=== PATIENT | female | born 1960 | race Hispanic/Latino ===

== ENCOUNTER 2018-01-02 20:55 | Emergency (ER) | payer MEDICARE ==
[2018-01-02 22:15] LABS: Bacteria,Urine 1+ /HPF (Negative); Bilirubin,Urine NEG (Negative); Blood,Urine NEG (Negative); Color,Urine Yellow (Yellow); Protein,Urine <15 mg/dL mg/dL (Negative); RBC,Urine < 1.0 /HPF (0.0-6.0); Urobilinogen,Urine < 2.0 mg/dL (<2.0); WBC,Urine < 1.0 /HPF (0.0-6.0)
[2018-01-02 22:16] LABS: Basophils # (Auto) 0.1 K/mm3 (0.0-0.1); Basophils % (Auto) 0.8 % (0.0-1.8); Eosinophils # (Auto) 0.1 K/mm3 (0.0-0.4); Eosinophils % (Auto) 0.7 % (0.0-4.3); Hematocrit 44.4 % (30.3-42.9); Hemoglobin 14.9 gm/dl (10.1-14.3); Lymphocytes # (Auto) 3.3 K/mm3 (1.2-5.4); Lymphocytes % (Auto) 30.6 % (13.4-35.0); Mean Corpuscular HGB Conc 34 % (30-34); Mean Corpuscular Hemoglobin 30 pg (28-32); Mean Corpuscular Volume 90 fl (79-97); Monocytes # (Auto) 0.4 K/mm3 (0.0-0.8); Monocytes % (Auto) 3.3 % (0.0-7.3); Platelet Count 294 K/mm3 (140-440); Red Blood Count 4.93 M/mm3 (3.65-5.03); Red Cell Distribution Width 15.8 % (13.2-15.2)
[2018-01-02 22:32] LABS: Amphetamine Screen,Urine PRESUMPTIVE NEGATIVE; Benzodiazepines Screen,Urine PRESUMPTIVE NEGATIVE; Cannabinoid Screen,Urine PRESUMPTIVE NEGATIVE; Cocaine Screen,Urine PRESUMPTIVE NEGATIVE; Methadone Screen,Urine PRESUMPTIVE NEGATIVE; Opiate Screen,Urine PRESUMPTIVE NEGATIVE
[2018-01-02 22:35] LABS: BUN/Creatinine Ratio 8; Blood Urea Nitrogen 4 mg/dL (7-17); Calcium 8.3 mg/dL (8.4-10.2); Hemolysis Index 6
[2018-01-03] MEDS ORDERED: NACL 0.9% 1000 ML 1,000 ML ONE (03:41)
[2018-01-03] MEDS ORDERED: NACL 0.9% 1000 ML 2,000 ML IV ONE (03:42)
--- NOTE | 2018-01-03 05:01 | Emergency Department Report ---
ED Psych HPI - General Chief Complaint: Medical Clearance Stated Complaint: DETOX Time Seen by Provider: 01/03/18 02:09 Source: patient Mode of arrival: Ambulatory - History of Present Illness Initial Comments: Ms. Mascorro is a 57-year-old female with history of alcoholism and substance abuse. Prior to arrival she drinks alcohol just 2 hours before she came to the ED. She took several tablets of Suboxone. She stated that she wanted treatment for her substance dependence. She says she is depressed. She denies plan to harm herself. She has had suicidal thoughts. MD Complaint: suicidal ideation, feels depressed -: days(s) (several) Associated Psychiatric Symptoms: depression, suicidal ideation Improves With: none Worsens With: none Context: recent alcohol abuse, recent drug abuse Associated Symptoms: denies other symptoms - Related Data Allergies Allergy/AdvReac Type Severity Reaction Status Date / Time No Known Allergies Allergy Unverified 01/02/18 21:37 ED Review of Systems ROS: Stated complaint: DETOX Other details as noted in HPI Comment: All other systems reviewed and negative Constitutional: denies: fever, malaise Respiratory: denies: cough Cardiovascular: denies: chest pain ED Past Medical Hx - Past Medical History Previous Medical History?: Yes Hx Psychiatric Treatment: Yes (Bipolar) Additional medical history: fibromyalgia. thyroid - Surgical History Past Surgical History?: Yes Additional Surgical History: benign lump removed from breast - Social History Smoking Status: Current Every Day Smoker Substance Use Type: Alcohol, Other ED Physical Exam - General Limitations: No Limitations General appearance: alert, in no apparent distress, appears intoxicated, other ( slurred speech but protecting airway will give history) - Head Head exam: Present: atraumatic, normocephalic - Eye Eye exam: Present: normal appearance - ENT ENT exam: Present: mucous membranes moist - Neck Neck exam: Present: normal inspection. Absent: tenderness, meningismus - Respiratory Respiratory exam: Present: normal lung sounds bilaterally. Absent: respiratory distress, wheezes, rales, rhonchi - Cardiovascular Cardiovascular Exam: Present: regular rate, normal rhythm, normal heart sounds. Absent: systolic murmur, diastolic murmur, rubs, gallop - GI/Abdominal GI/Abdominal exam: Present: soft, normal bowel sounds. Absent: distended, tenderness, guarding, rebound - Extremities Exam Extremities exam: Present: normal inspection - Back Exam Back exam: Present: normal inspection - Neurological Exam Neurological exam: Present: alert, oriented X3 - Psychiatric Psychiatric exam: Present: depressed, flat affect - Skin Skin exam: Present: warm, dry, intact, normal color. Absent: rash ED Course Vital Signs 01/02/18 01/02/18 01/03/18 21:06 21:31 01:41 Temperature 97.4 F L 97.4 F L Pulse Rate 70 73 Respiratory 18 18 Rate Blood Pressure 109/69 109/69 92/56 Blood Pressure [Left] O2 Sat by Pulse 92 95 Oximetry 01/03/18 01/03/18 01/03/18 01:45 02:00 02:05 Temperature 97.5 F L Pulse Rate 56 L 54 L 60 Respiratory 20 18 14 Rate Blood Pressure 93/59 96/61 Blood Pressure 96/56 [Left] O2 Sat by Pulse 97 97 97 Oximetry 01/03/18 01/03/18 01/03/18 02:15 02:30 02:45 Temperature Pulse Rate 56 L 57 L 54 L Respiratory 18 17 17 Rate Blood Pressure 96/61 93/52 93/52 Blood Pressure [Left] O2 Sat by Pulse 97 97 96 Oximetry 01/03/18 01/03/18 01/03/18 03:00 03:15 03:31 Temperature Pulse Rate 56 L 55 L 56 L Respiratory 17 16 16 Rate Blood Pressure 76/47 101/56 62/24 Blood Pressure [Left] O2 Sat by Pulse 95 97 80 L Oximetry 01/03/18 01/03/18 01/03/18 03:45 04:01 04:15 Temperature Pulse Rate 70 63 58 L Respiratory 13 10 L 19 Rate Blood Pressure 91/47 108/77 98/64 Blood Pressure [Left] O2 Sat by Pulse 97 97 95 Oximetry 01/03/18 04:30 Temperature Pulse Rate 53 L Respiratory 15 Rate Blood Pressure 99/58 Blood Pressure [Left] O2 Sat by Pulse 94 Oximetry ED Medical Decision Making - Lab Data Result diagrams: 01/02/18 21:52 01/02/18 21:52 Laboratory Results - last 24 hr 01/02/18 01/02/18 01/02/18 21:52 21:52 21:52 WBC RBC Hgb Hct MCV MCH MCHC RDW Plt Count Lymph % (Auto) [place] % (Auto) Eos % (Auto) Baso % (Auto) Lymph # [place] # Eos # Baso # Seg Neutrophils % Seg Neutrophils # Sodium 138 Potassium 3.6 Chloride 96.4 L Carbon Dioxide 21 L Anion Gap 24 BUN 4 L Creatinine 0.5 L Estimated GFR > 60 BUN/Creatinine Ratio 8 Glucose 114 H Calcium 8.3 L Urine Color Urine Turbidity Urine pH Ur Specific Ariel Urine Protein Urine Glucose (UA) Urine Ketones Urine Blood Urine Nitrite Urine Bilirubin Urine Urobilinogen Ur Leukocyte Esterase Urine WBC (Auto) Urine RBC (Auto) U Epithel Cells (Auto) Urine Bacteria (Auto) Salicylates < 0.3 L Urine Opiates Screen Urine Methadone Screen Acetaminophen < 5.0 L Ur Barbiturates Screen Ur Phencyclidine Scrn Ur Amphetamines Screen U Benzodiazepines Scrn Urine Cocaine Screen U Marijuana (THC) Screen Drugs of Abuse Note Plasma/Serum Alcohol 01/02/18 01/02/18 01/02/18 21:52 21:52 21:55 WBC 10.8 RBC 4.93 Hgb 14.9 H Hct 44.4 H MCV 90 MCH 30 MCHC 34 RDW 15.8 H Plt Count 294 Lymph % (Auto) 30.6 [place] % (Auto) 3.3 Eos % (Auto) 0.7 Baso % (Auto) 0.8 Lymph # 3.3 [place] # 0.4 Eos # 0.1 Baso # 0.1 Seg Neutrophils % 64.6 Seg Neutrophils # 7.0 Sodium Potassium Chloride Carbon Dioxide Anion Gap BUN Creatinine Estimated GFR BUN/Creatinine Ratio Glucose Calcium Urine Color Yellow Urine Turbidity Clear Urine pH 6.0 Ur Specific Ariel 1.004 Urine Protein <15 mg/dl Urine Glucose (UA) Neg Urine Ketones Neg Urine Blood Neg Urine Nitrite Neg Urine Bilirubin Neg Urine Urobilinogen < 2.0 Ur Leukocyte Esterase Neg Urine WBC (Auto) < 1.0 Urine RBC (Auto) < 1.0 U Epithel Cells (Auto) 1.0 Urine Bacteria (Auto) 1+ Salicylates Urine Opiates Screen Urine Methadone Screen Acetaminophen Ur Barbiturates Screen Ur Phencyclidine Scrn Ur Amphetamines Screen U Benzodiazepines Scrn Urine Cocaine Screen U Marijuana (THC) Screen Drugs of Abuse Note Plasma/Serum Alcohol 0.26 H 01/02/18 21:55 WBC RBC Hgb Hct MCV MCH MCHC RDW Plt Count Lymph % (Auto) [place] % (Auto) Eos % (Auto) Baso % (Auto) Lymph # [place] # Eos # Baso # Seg Neutrophils % Seg Neutrophils # Sodium Potassium Chloride Carbon Dioxide Anion Gap BUN Creatinine Estimated GFR BUN/Creatinine Ratio Glucose Calcium Urine Color Urine Turbidity Urine pH Ur Specific Ariel Urine Protein Urine Glucose (UA) Urine Ketones Urine Blood Urine Nitrite Urine Bilirubin Urine Urobilinogen Ur Leukocyte Esterase Urine WBC (Auto) Urine RBC (Auto) U Epithel Cells (Auto) Urine Bacteria (Auto) Salicylates Urine Opiates Screen Presumptive negative Urine Methadone Screen Presumptive negative Acetaminophen Ur Barbiturates Screen Presumptive negative Ur Phencyclidine Scrn Presumptive negative Ur Amphetamines Screen Presumptive negative U Benzodiazepines Scrn Presumptive negative Urine Cocaine Screen Presumptive negative U Marijuana (THC) Screen Presumptive negative Drugs of Abuse Note Disclamer Plasma/Serum Alcohol Vital Signs - 24 hr 01/02/18 01/02/18 01/03/18 21:06 21:31 01:41 Temperature 97.4 F L 97.4 F L Pulse Rate 70 73 Respiratory 18 18 Rate Blood Pressure 109/69 109/69 92/56 Blood Pressure [Left] O2 Sat by Pulse 92 95 Oximetry 01/03/18 01/03/18 01/03/18 01:45 02:00 02:05 Temperature 97.5 F L Pulse Rate 56 L 54 L 60 Respiratory 20 18 14 Rate Blood Pressure 93/59 96/61 Blood Pressure 96/56 [Left] O2 Sat by Pulse 97 97 97 Oximetry 01/03/18 01/03/18 01/03/18 02:15 02:30 02:45 Temperature Pulse Rate 56 L 57 L 54 L Respiratory 18 17 17 Rate Blood Pressure 96/61 93/52 93/52 Blood Pressure [Left] O2 Sat by Pulse 97 97 96 Oximetry 01/03/18 01/03/18 01/03/18 03:00 03:15 03:31 Temperature Pulse Rate 56 L 55 L 56 L Respiratory 17 16 16 Rate Blood Pressure 76/47 101/56 62/24 Blood Pressure [Left] O2 Sat by Pulse 95 97 80 L Oximetry 01/03/18 01/03/18 01/03/18 03:45 04:01 04:15 Temperature Pulse Rate 70 63 58 L Respiratory 13 10 L 19 Rate Blood Pressure 91/47 108/77 98/64 Blood Pressure [Left] O2 Sat by Pulse 97 97 95 Oximetry 01/03/18 04:30 Temperature Pulse Rate 53 L Respiratory 15 Rate Blood Pressure 99/58 Blood Pressure [Left] O2 Sat by Pulse 94 Oximetry - Medical Decision Making Ms. Miller is a 57-year-old female with history of substance abuse. She is obviously intoxicated. She did have transient hypotension ED which responded to IV fluids. Will provide maintenance infusion of IV fluid. Awaiting sobriety. Will need mental health gang investigator evaluation if she has persistent suicidal thoughts once she is sober. She informed the nurse that she will need inpatient psychiatric treatment due to her suicidal thoughts. We will be able to better assess her when she is sober. Right now she is hemodynamically stable. My colleague will assess patient once she is sober. She may require mental health gang investigator. I suspect hypotension due to narcotic ingestion. No indication of sepsis no indication of ACS evidence of bleeding. Critical care attestation.: If time is entered above; I have spent that time in minutes in the direct care of this critically ill patient, excluding procedure time. ED Disposition Clinical Impression: Alcohol intoxication, Polysubstance abuse, Dehydration, mild Disposition: [id number] PSY HOSP/PSY UNIT Is pt being admited?: No Does the pt Need Aspirin: No Condition: Stable
[2018-01-03] MEDS ORDERED: NACL 0.9% 1000 ML 1,000 ML IV ONE (06:02)
[2018-01-03] MEDS ORDERED: ATIVAN IV PRN (10:57)
[2018-01-03] MEDS ORDERED: ATIVAN PO PRN ×2 (10:57)
[2018-01-03 18:07] VITALS: BP 124/76
== END 2018-01-03 18:00 ==
LOC: ED 20:55
DX: F10.129 Alcohol abuse with intoxication, unspecified (principal); E86.0 Dehydration; F31.9 Bipolar disorder, unspecified; F17.200 Nicotine dependence, unspecified, uncomplicated; M79.7 Fibromyalgia
CPT/HCPCS: 36415; 80048; 80307; 81001; 85025; 96365; 96366; 99283; G0480; J7030; 80320

== ENCOUNTER 2018-03-30 14:32 | Emergency (ER) | payer MEDICARE ==
[2018-03-30 14:46] VITALS: BP 132/83
[2018-03-30] MEDS ORDERED: MOTRIN PO ONE (15:29)
[2018-03-30] MEDS ORDERED: TESSALON PERLES PO ONE (15:29)
--- NOTE | 2018-03-30 15:39 | Emergency Department Report ---
- General Chief Complaint: Upper Respiratory Infection Stated Complaint: SHORT OF BREATH Time Seen by Provider: 03/30/18 15:17 Source: patient Mode of arrival: Ambulatory Limitations: No Limitations - History of Present Illness Initial Comments: This is a 57-year-old female nontoxic, well nourished in appearance, no acute signs of distress presents to the ED with c/o of productive cough, rhinorrhea, nasal congestion x3 days. Patient describes productive cough as yellow mucus production. Patient denies any sick contact. Patient denies any recent travels , long car, recent hospital stays. Patient denies any calf pain or calf tenderness. Patient denies any chest pain, short of breath, fever, chills, nausea, vomiting, hemoptysis, numbness, tingling, headache or stiff neck. Patient denies any allergies. Past medical history includes COPD, psychiatric and seizure. MD Complaint: cough, rhinorrhea, nasal congestion -: days(s) (3) Severity: mild Severity scale (0 -10): 0 Improves With: nothing Worsens With: nothing Associated Symptoms: denies other symptoms, rhinorrhea, nasal congestion, cough. denies: fever, chills, myalgias, diaphoresis, headache, sore throat, stiff neck, chest pain, shortness of breath, abdominal pain, nausea, vomiting, diarrhea, dysuria, rash, confusion, right sweats, weight loss, epistaxis, hoarseness, ear pain Treatments Prior to Arrival: none - Related Data Home Medications Medication Instructions Recorded Confirmed Last Taken Pregabalin [Lyrica] 1 cap PO TID 01/03/18 01/03/18 01/01/18 Previous Rx's Medication Instructions Recorded Last Taken Type Azithromycin [Zithromax Z-MENDEL] 250 mg PO DAILY #6 tablet 03/30/18 Unknown Rx Ibuprofen [Motrin] 600 mg PO Q8H PRN #30 tablet 03/30/18 Unknown Rx Allergies Allergy/AdvReac Type Severity Reaction Status Date / Time No Known Allergies Allergy Unverified 01/02/18 21:37 ED Review of Systems ROS: Stated complaint: SHORT OF BREATH Other details as noted in HPI Constitutional: denies: chills, fever Eyes: denies: eye pain, eye discharge, vision change ENT: denies: ear pain, throat pain Respiratory: cough. denies: shortness of breath, wheezing Cardiovascular: denies: chest pain, palpitations Endocrine: no symptoms reported Gastrointestinal: denies: abdominal pain, nausea, diarrhea Genitourinary: denies: urgency, dysuria, discharge Musculoskeletal: denies: back pain, joint swelling, arthralgia Skin: denies: rash, lesions Neurological: denies: headache, weakness, paresthesias Psychiatric: denies: anxiety, depression Hematological/Lymphatic: denies: easy bleeding, easy bruising ED Past Medical Hx - Past Medical History Previous Medical History?: Yes Hx Diabetes: No Hx Seizures: Yes Hx Psychiatric Treatment: Yes (Bipolar, depression) Hx COPD: Yes Additional medical history: fibromyalgia. thyroid - Surgical History Past Surgical History?: Yes Additional Surgical History: benign lump removed from breast, tubal ligation, knee surgery - Social History Smoking Status: Current Every Day Smoker Substance Use Type: None - Medications Home Medications: Home Medications Medication Instructions Recorded Confirmed Last Taken Type Pregabalin [Lyrica] 1 cap PO TID 01/03/18 01/03/18 01/01/18 History Azithromycin [Zithromax Z-MENDEL] 250 mg PO DAILY #6 tablet 03/30/18 Unknown Rx Ibuprofen [Motrin] 600 mg PO Q8H PRN #30 tablet 03/30/18 Unknown Rx ED Physical Exam - General Limitations: No Limitations General appearance: alert, in no apparent distress - Head Head exam: Present: atraumatic, normocephalic - Eye Eye exam: Present: normal appearance Pupils: Present: normal accommodation - ENT ENT exam: Present: normal exam, mucous membranes moist - Neck Neck exam: Present: normal inspection, full ROM. Absent: tenderness, meningismus, lymphadenopathy - Respiratory Respiratory exam: Present: normal lung sounds bilaterally. Absent: respiratory distress, wheezes, rales, rhonchi, stridor, chest wall tenderness, accessory muscle use, decreased breath sounds, prolonged expiratory - Cardiovascular Cardiovascular Exam: Present: regular rate, normal rhythm, normal heart sounds. Absent: bradycardia, tachycardia, irregular rhythm, systolic murmur, diastolic murmur, rubs, gallop - GI/Abdominal GI/Abdominal exam: Present: soft, normal bowel sounds. Absent: distended, tenderness, guarding, rebound, rigid, diminished bowel sounds - Rectal Rectal exam: Present: deferred - Extremities Exam Extremities exam: Present: normal inspection, full ROM, normal capillary refill - Back Exam Back exam: Present: normal inspection, full ROM - Neurological Exam Neurological exam: Present: alert, oriented X3, normal gait - Psychiatric Psychiatric exam: Present: normal affect, normal mood - Skin Skin exam: Present: warm, dry, intact, normal color. Absent: rash ED Course Vital Signs 03/30/18 14:38 Temperature 98.6 F Pulse Rate 76 Respiratory 22 Rate Blood Pressure 132/83 O2 Sat by Pulse 96 Oximetry - Reevaluation(s) Reevaluation #1: 03/30/18 15:36 Patient is speaking in full sentences with no signs of distress noted. ED Medical Decision Making - Medical Decision Making This is a 57-year-old female that presents with bronchitis. Patient is stable and was examined by me. Chest x-ray has been obtained and dictated by radiologist with normal exam. Patient is notified of x-ray results with no questions noted. Due to patient having symptoms of upper respiratory infection and symptoms of influenza and worsening I will treat patient empirically with zpak. Patient was instructed to increase hydration, rest and take Motrin for fever episodes. Patient received motrin and tesslone perrls in the ED. Vitals stable. Patient is nonfebrile and normal heart rate. Patient was instructed Follow-up with a primary care doctor in 3-5 days or if symptoms worsen and continue return to emergency room as soon as possible. At time time of discharge, the patient does not seem toxic or ill in appearance. No acute signs of distress noted. Patient agrees to discharge treatment plan of care. No further questions noted by the patient. Critical care attestation.: If time is entered above; I have spent that time in minutes in the direct care of this critically ill patient, excluding procedure time. ED Disposition Clinical Impression: Bronchitis Disposition: DC-01 TO HOME OR SELFCARE Is pt being admited?: No Does the pt Need Aspirin: No Condition: Stable Instructions: Acute Bronchitis (ED), Azithromycin (By mouth) Additional Instructions: Follow-up with a primary care doctor in 3-5 days or if symptoms worsen and continue return to emergency room as soon as possible. Prescriptions: Azithromycin [Zithromax Z-MENDEL] 250 mg PO DAILY #6 tablet Ibuprofen [Motrin] 600 mg PO Q8H PRN #30 tablet PRN Reason: Pain Referrals: CROW YAÑEZ MD [Primary Care Provider] - 3-5 Days PRIMARY CAREMD [Referring] - 3-5 Days BELINDA BAH MD [Staff Physician] - 3-5 Days [facility] [Outside] - 3-5 Days [facility] [Outside] - 3-5 Days
--- NOTE | 2018-03-30 16:25 | XRay Report ---
FINAL REPORT EXAM: XR CHEST ROUTINE 2V HISTORY: cough COMPARISON: None. TECHNIQUE: Frontal and lateral views of the chest. FINDINGS: The cardiomediastinal silhouette is normal in appearance. The lungs are clear without focal consolidation. There is no pleural effusion or pneumothorax. There is no acute soft tissue or osseous abnormality. IMPRESSION: No acute cardiopulmonary disease.
== END 2018-03-30 17:20 | disposition home or self-care (01) ==
LOC: ED 14:32
DX: J40 Bronchitis, not specified as acute or chronic (principal); F31.9 Bipolar disorder, unspecified; M79.7 Fibromyalgia; F17.200 Nicotine dependence, unspecified, uncomplicated; Z98.51 Tubal ligation status
CPT/HCPCS: 71046; 99283

== ENCOUNTER 2021-06-30 09:13 | Observation (INO) | payer MEDICARE ==
[2021-06-30] MEDS ORDERED: dexAMETHasone 20 MG/5 ML VIAL IM ONE (10:35)
[2021-06-30] MEDS ORDERED: IPRATROPIUM 0.02% NEBU 2.5 ML IH ONE (10:35)
[2021-06-30] MEDS ORDERED: ALBUTEROL 2.5 MG/3 ML NEBU IH ONE (10:35)
[2021-06-30 10:50] LABS: Basophils # (Auto) 0.2 K/mm3 (0.0-0.1); Basophils % (Auto) 0.9 % (0.0-1.8); Eosinophils # (Auto) 0.1 K/mm3 (0.0-0.4); Eosinophils % (Auto) 0.4 % (0.0-4.3); Lymphocytes # (Auto) 2.2 K/mm3 (1.2-5.4); Lymphocytes % (Auto) 11.4 % (13.4-35.0); Mean Corpuscular HGB Conc 35 % (30-34); Mean Corpuscular Volume 87 fl (79-97); Monocytes # (Auto) 0.6 K/mm3 (0.0-0.8); Monocytes % (Auto) 3.2 % (0.0-7.3); Platelet Count 340 K/mm3 (140-440); Red Blood Count 4.24 M/mm3 (3.65-5.03); Red Cell Distribution Width 17.3 % (13.2-15.2)
--- NOTE | 2021-06-30 10:50 | Emergency Department Report ---
- General Chief Complaint: Dyspnea/Respdistress Stated Complaint: COUGH/TONNY Time Seen by Provider: 06/30/21 10:29 Source: patient Mode of arrival: Ambulatory Limitations: No Limitations - History of Present Illness Initial Comments: Patient is a 60-year-old female presents emergency room complaints of a cough that began 2 to 3 weeks ago. She states that she has a small amount of brown phlegm production. She has associated shortness of breath, wheezing, chest tightness. She denies any hemoptysis, leg swelling, calf pain, fever, vomiting, diarrhea, abdominal pain. Past medical history of fibromyalgia and COPD. She is a current every day smoker 1 pack/day. No allergies to medications. pt is not fully vaccinated for COVID 19, she states she has only received one dose of the vaccine. - Related Data Home Medications Medication Instructions Recorded Confirmed Last Taken Pregabalin [Lyrica] 1 cap PO TID 01/03/18 01/03/18 01/01/18 Previous Rx's Medication Instructions Recorded Last Taken Type Azithromycin [Zithromax Z-MENDEL] 250 mg PO DAILY #6 tablet 03/30/18 Unknown Rx Ibuprofen [Motrin] 600 mg PO Q8H PRN #30 tablet 03/30/18 Unknown Rx Allergies Allergy/AdvReac Type Severity Reaction Status Date / Time No Known Allergies Allergy Verified 06/30/21 12:12 ED Review of Systems ROS: Stated complaint: COUGH/TONNY Other details as noted in HPI Comment: All other systems reviewed and negative ED Past Medical Hx - Past Medical History Previous Medical History?: Yes Hx Diabetes: No Hx Seizures: Yes Hx Psychiatric Treatment: Yes (Bipolar, depression) Hx COPD: Yes (no home O2) Additional medical history: fibromyalgia. hypothyroidism - Surgical History Past Surgical History?: Yes Additional Surgical History: benign lump removed from breast, tubal ligation, knee surgery, renal stent - Social History Smoking Status: Current Every Day Smoker Substance Use Type: None - Medications Home Medications: Home Medications Medication Instructions Recorded Confirmed Last Taken Type Pregabalin [Lyrica] 1 cap PO TID 01/03/18 01/03/18 01/01/18 History Azithromycin [Zithromax Z-MENDEL] 250 mg PO DAILY #6 tablet 03/30/18 Unknown Rx Ibuprofen [Motrin] 600 mg PO Q8H PRN #30 tablet 03/30/18 Unknown Rx ED Physical Exam - General Limitations: No Limitations General appearance: alert, in no apparent distress - Head Head exam: Present: atraumatic, normocephalic - Eye Eye exam: Present: normal appearance - ENT ENT exam: Present: mucous membranes moist - Respiratory Respiratory exam: Present: wheezes (expiratory bilaterally ), decreased breath sounds, prolonged expiratory. Absent: respiratory distress, rales, rhonchi, stridor, chest wall tenderness, accessory muscle use - Cardiovascular Cardiovascular Exam: Present: regular rate, normal rhythm, normal heart sounds. Absent: systolic murmur, diastolic murmur, rubs, gallop - Neurological Exam Neurological exam: Present: alert, oriented X3 - Psychiatric Psychiatric exam: Present: normal affect, normal mood - Skin Skin exam: Present: warm, dry, intact ED Course Vital Signs 06/30/21 06/30/21 06/30/21 09:24 11:37 11:45 Temperature 98.5 F Pulse Rate 80 72 Respiratory 20 18 17 Rate Blood Pressure 115/65 O2 Sat by Pulse 91 94 Oximetry 06/30/21 06/30/21 06/30/21 12:01 12:12 12:15 Temperature Pulse Rate 78 75 Respiratory 20 21 Rate Blood Pressure O2 Sat by Pulse 94 95 96 Oximetry 06/30/21 06/30/21 06/30/21 12:31 12:45 13:01 Temperature Pulse Rate 73 73 Respiratory 11 L 13 16 Rate Blood Pressure O2 Sat by Pulse 88 89 91 Oximetry 06/30/21 06/30/21 06/30/21 13:16 13:31 13:45 Temperature Pulse Rate 73 75 Respiratory 15 18 14 Rate Blood Pressure 105/63 105/63 O2 Sat by Pulse 93 95 95 Oximetry 06/30/21 06/30/21 06/30/21 14:01 14:15 14:31 Temperature Pulse Rate 76 75 75 Respiratory 12 10 L 15 Rate Blood Pressure 110/62 110/62 101/69 O2 Sat by Pulse 89 95 93 Oximetry 06/30/21 14:45 Temperature Pulse Rate 72 Respiratory 12 Rate Blood Pressure 101/69 O2 Sat by Pulse 94 Oximetry - Reevaluation(s) Reevaluation #1: 06/30/21 11:[address] Coats, ER attending who advised admission - Consultations Consultation #1: 06/30/21 11:[address] Washburn, hospitalist regarding patient presentation results, will accept and resume care of patient, will admit to hospital service, he advised he will start patient on sepsis protocol due to elevated white count with hypoxia. ED Medical Decision Making - Lab Data Result diagrams: 06/30/21 10:39 06/30/21 10:39 Labs 06/30/21 06/30/21 10:39 10:39 WBC 19.6 H RBC 4.24 Hgb 13.0 Hct 37.0 MCV 87 MCH 31 MCHC 35 H RDW 17.3 H Plt Count 340 Lymph % (Auto) 11.4 L [place] % (Auto) 3.2 Eos % (Auto) 0.4 Baso % (Auto) 0.9 Lymph # (Auto) 2.2 [place] # (Auto) 0.6 Eos # (Auto) 0.1 Baso # (Auto) 0.2 H Seg Neutrophils % 84.1 H Seg Neutrophils # 16.4 H Sodium 134 L Potassium 4.9 Chloride 93.2 L Carbon Dioxide 30 Anion Gap 16 BUN 11 Creatinine 0.8 Estimated GFR > 60 BUN/Creatinine Ratio 14 Glucose 104 H Calcium 8.6 Total Bilirubin 0.20 AST 16 ALT 8 Alkaline Phosphatase 106 Total Protein 7.5 Albumin 3.6 L Albumin/Globulin Ratio 0.9 - Radiology Data Radiology results: report reviewed Ordering Physician: AMBER TERRY Date of Service: 06/30/21 Procedure(s): XR chest routine 2V Accession Number(s): [id number] cc: AMBER TERRY Fluoro Time In Minutes: CHEST 2 VIEWS INDICATION / CLINICAL INFORMATION: cough, sob, wheezing. COMPARISON: 03/30/2018 FINDINGS: SUPPORT DEVICES: None. HEART / MEDIASTINUM: No significant abnormality. LUNGS / PLEURA: Scattered peripheral patchy airspace opacities throughout both lungs. No pneumothorax. ADDITIONAL FINDINGS: No significant additional findings. IMPRESSION: 1. Findings suggesting multifocal pneumonia Signer Name: Pablo Martinez DO Signed: 06/30/2021 10:59 AM Workstation Name: [id number] Transcribed By: ROSEMARY Dictated By: PABLO MARTINEZ DO Electronically Authenticated By: PABLO MARTINEZ DO Signed Date/Time: 06/30/21 1059 DD/ 1058 TD/TT: - Medical Decision Making Patient is a 60-year-old female presents emergency room complaints of a cough that began 2 to 3 weeks ago. She states that she has a small amount of brown phlegm production. She has associated shortness of breath, wheezing, chest tightness. She denies any hemoptysis, leg swelling, calf pain, fever, vomiting, diarrhea, abdominal pain. Past medical history of fibromyalgia and COPD. She is a current every day smoker 1 pack/day. No allergies to medications. pt is not fully vaccinated for COVID 19, she states she has only received one dose of the vaccine. Vitals with hypoxia, otherwise vitals are normal. Patient placed on oxygen with improvement of her hypoxia. On exam patient has expiratory wheezing bilaterally. Chest x-ray shows 1. Findings suggesting multifocal pneumonia. Patient given continuous neb treatment and IM steroids with improve ment of her wheezing. Due to multifocal pneumonia patient started on ceftriaxone and azithromycin. Multifocal pneumonia could represent COVID-19. Patient is hypoxic at rest. Patient desats further upon ambulation. Discussed case with Dr. Dallas, ER attending who recommended admission.Spoke to Dr. Washburn, hospitalist regarding patient presentation results, will accept and resume care of patient, will admit to hospital service, he advised he will start patient on sepsis protocol due to elevated white count with hypoxia. Critical care attestation.: If time is entered above; I have spent that time in minutes in the direct care of this critically ill patient, excluding procedure time. ED Disposition Clinical Impression: Multifocal pneumonia, COPD exacerbation, Person under investigation for COVID- 19, Acute respiratory failure with hypoxia Disposition: 02 [facility]ORT TERM HOSPITAL Is pt being admited?: Yes Does the pt Need Aspirin: No Condition: Fair Time of Disposition: 11:39
--- NOTE | 2021-06-30 11:04 | XRay Report ---
CHEST 2 VIEWS INDICATION / CLINICAL INFORMATION: cough, sob, wheezing. COMPARISON: 03/30/2018 FINDINGS: SUPPORT DEVICES: None. HEART / MEDIASTINUM: No significant abnormality. LUNGS / PLEURA: Scattered peripheral patchy airspace opacities throughout both lungs. No pneumothorax . ADDITIONAL FINDINGS: No significant additional findings. IMPRESSION: 1. Findings suggesting multifocal pneumonia Signer Name: Pablo Lanza DO Signed: 06/30/2021 10:59 AM Workstation Name: [id number]
[2021-06-30] MEDS ORDERED: AZITHROMYCIN/NS 500 MG/250 ML 500 MG/250 ML BAG IV ONE (11:05)
[2021-06-30] MEDS ORDERED: cefTRIAXone/NS 2 GM/100 ML 2 GM/100 ML BAG IV ONE (11:05)
[2021-06-30 11:11] LABS: Alanine Aminotransferase 8 units/L (7-56); Albumin 3.6 g/dL (3.9-5); BUN/Creatinine Ratio 14; Blood Urea Nitrogen 11 mg/dL (7-17); Calcium 8.6 mg/dL (8.4-10.2); Hemolysis Index 5
[2021-06-30] MEDS ORDERED: HYDROmorphone 1 MG/1 ML INJ IV PRN ×2 (12:12)
[2021-06-30] MEDS ORDERED: ONDANSETRON 4 MG/2 ML INJ IV PRN (12:12)
[2021-06-30] MEDS ORDERED: ALBUTEROL 2.5 MG/3 ML NEBU IH PRN (12:12)
[2021-06-30] MEDS ORDERED: ACETAMINOPHEN 325 MG TAB PO PRN ×2 (12:12)
--- NOTE | 2021-06-30 12:12 | History and Physical Report ---
History of Present Illness Chief complaint: I cannot breathe and I am coughing History of present illness: 60 YO Female with Obesity Hypoventilation Syndrome, Nicotine Dependence, COPD, Hypothyroidism, FM not taking DMARD presents to ED for evaluation. Patient reports "I cannot breathe and I am coughing". Patient states that she has experienced dry cough over the past 2 weeks with worsening symptoms over the past 4 days. Patient acknowledges increased shortness of breath over the past 4 days, subjective fever, fatigue, malaise, decreased exercise tolerance, body aches, diminished sense of smell, diminished sense of taste. Patient transported to [facility] via private vehicle for further care and evaluation of the aforementioned symptoms. The patient was seen and evaluated in the emergency department. All lab and imaging studies reviewed. Patient found to have a pulse oximetry of 86% with exertion which is consistent with acute hypoxemic respiratory failure. Chest x-ray revealed bilateral pneumonia which was complicated by sepsis. Patient admitted to medical floor and initiated on pneumonia protocol, sepsis protocol as well as coronavirus protocol. Patient denies chest pain, palpitation, unilateral leg swelling, calf pain, individual/family history of DVT/PE/bleeding/blood clotting disorders. No prior admission for review. No medication listed for reconciliation at time of admission. Advanced care planning conducted in ED. Patient not fully vaccinated against COVID-19. Patient received 1 of 2 doses of vaccine 1 month ago. Past History Past Medical History: COPD, hypothyroidism, other (See HPI) Past Surgical History: Other (benign lump removed from breast, tubal ligation, knee surgery, renal stent) Social history: , smoking Family history: hypertension Medications and Allergies Allergies Allergy/AdvReac Type Severity Reaction Status Date / Time No Known Allergies Allergy Verified 06/30/21 12:12 Home Medications Medication Instructions Recorded Confirmed Last Taken Type Pregabalin [Lyrica] 1 cap PO TID 01/03/18 01/03/18 01/01/18 History Azithromycin [Zithromax Z-MENDEL] 250 mg PO DAILY #6 tablet 03/30/18 Unknown Rx Ibuprofen [Motrin] 600 mg PO Q8H PRN #30 tablet 03/30/18 Unknown Rx Review of Systems Constitutional: fever, fatigue, weakness, malaise Ears, nose, mouth and throat: other (Diminished sense of smell, diminished sense of taste), no ear pain, no ear discharge, no tinnitis, no nose pain Breasts: no change in shape, no swelling, no mass Cardiovascular: no chest pain, no orthopnea, no palpitations Respiratory: cough, shortness of breath Gastrointestinal: no abdominal pain, no nausea, no vomiting, no diarrhea Genitourinary Female: no pelvic pain, no flank pain, no dysuria, no urinary frequency, no urgency Rectal: no pain, no incontinence, no bleeding Musculoskeletal: no neck stiffness, no shooting arm pain, no arm numbness/tingling, no low back pain, no shooting leg pain Integumentary: no rash, no pruritis, no redness, no sores, no wounds Neurological: no head injury, no transient paralysis, no parathesias, no numbness, no seizures, no syncope, no tremors Psychiatric: no anxiety, no change in sleep habits, no insomnia, no change in appetite, no change in libido, no suicidal ideation Endocrine: no cold intolerance, no heat intolerance, no excessive thirst, no polyuria, no excessive sweating Hematologic/Lymphatic: no easy bruising, no easy bleeding, no lymphadenopathy Allergic/Immunologic: no urticaria, no wheezing, no persistent infections, no angioedema Exam - Constitutional Vitals: Temp Pulse Resp BP Pulse Ox 98.5 F 72 17 115/65 94 06/30/21 09:24 06/30/21 11:45 06/30/21 11:45 06/30/21 09:24 06/30/21 11:45 General appearance: Present: mild distress, obese - EENT Eyes: Present: PERRL ENT: hearing intact, clear oral mucosa - Neck Neck: Present: supple, normal ROM - Respiratory Respiratory effort: labored, accessory muscle use Respiratory: bilateral: diminished, rhonchi - Cardiovascular Heart Sounds: Present: S1 & S2. Absent: rub, click - Extremities Extremities: pulses symmetrical, No edema Peripheral Pulses: abnormal (Capillary refill greater than 3.5 seconds) - Abdominal General gastrointestinal: Present: soft, non-tender, non-distended, normal bowel sounds Female genitourinary: Present: normal - Integumentary Integumentary: Present: clear, warm, dry - Musculoskeletal Musculoskeletal: generalized weakness - Psychiatric Psychiatric: appropriate mood/affect, intact judgment & insight - Neurologic Neurologic: CNII-XII intact, moves all extremities Results - Labs CBC & Chem 7: 06/30/21 10:39 06/30/21 10:39 Labs: Abnormal lab results 06/30/21 06/30/21 Range/Units 10:39 10:39 WBC 19.6 H (4.5-11.0) K/mm3 MCHC 35 H (30-34) % RDW 17.3 H (13.2-15.2) % Lymph % (Auto) 11.4 L (13.4-35.0) % Baso # (Auto) 0.2 H (0.0-0.1) K/mm3 Seg Neutrophils % 84.1 H (40.0-70.0) % Seg Neutrophils # 16.4 H (1.8-7.7) K/mm3 Sodium 134 L (137-145) mmol/L Chloride 93.2 L (98-107) mmol/L Glucose 104 H (65-100) mg/dL Albumin 3.6 L (3.9-5) g/dL Assessment and Plan - Patient Problems (1) Sepsis Current Visit: Yes Status: Acute Plan to address problem: Sepsis protocol: Chest x-ray, CBC, CMP, urinalysis, IV fluid resuscitation therapy, IV antibiotic therapy, blood culture, maintain mean arterial pressure greater than or equal to 65, serial lactic acid level. (2) Acute respiratory failure with hypoxia Current Visit: Yes Status: Acute Plan to address problem: Supplemental oxygen, pulse oximetry, nebulizer therapy, prone positioning while in bed, early ambulation, pulmonary toilet. (3) Obesity hypoventilation syndrome Current Visit: Yes Status: Acute Plan to address problem: Balanced diet, increase physical activity at discharge, outpatient pulmonary follow-up for sleep study. (4) Multifocal pneumonia Current Visit: Yes Status: Acute Plan to address problem: Pneumonia protocol: Chest x-ray, CBC, CMP, IV antibiotic therapy, supplemental oxygen, pulse oximetry, nebulizer therapy, blood culture. (5) Person under investigation for COVID-19 Current Visit: Yes Status: Acute Plan to address problem: Coronavirus protocol: Supplemental oxygen, pulse oximetry, IV antibiotic therapy, IV steroid therapy, vitamin C therapy, vitamin D therapy, zinc therapy, prone positioning while in bed, early ambulation, prophylactic anticoagulation. (6) COVID-19 vaccination not done Current Visit: Yes Status: Acute Plan to address problem: Patient counseled (7) DVT prophylaxis Current Visit: Yes Status: Acute Plan to address problem: SCD to bilateral lower extremities while in bed, prophylactic anticoagulation (8) Advance care planning Current Visit: Yes Status: Acute Plan to address problem: Disease education conducted, care plan discussed, diagnosis discussed, patient is full code, patient knowledges understanding and agree with care plan, +30 minutes.
[2021-06-30] MEDS ORDERED: HYDROcodone/HOMATROPINE 5-1.5MG /5 ML ORAL LIQD UNIT DOSE PO PRN (12:16)
[2021-06-30] MEDS ORDERED: SODIUM CHLORIDE 0.9% 1000 ML IV SOLN IV ONE (13:00)
[2021-06-30] MEDS ORDERED: VANCOMYCIN PHARMACY TO DOSE IV SCH (13:00)
[2021-06-30 13:02] LABS: C-Reactive Protein 4.7 mg/dL (0.00-1.30)
[2021-06-30] MEDS: oxyCODONE /ACETAMINOPHEN 5-325MG TAB PO PRN (13:27)
[2021-06-30] MEDS ORDERED: VANCOMYCIN 1,750 MG in SODIUM CHLORIDE 0.9% 500 ML 500 ML IV ONE (13:30)
[2021-06-30] MEDS ORDERED: NON-FORMULARY EACH (Pregabalin [Lyrica] 200 MG Capsule) PO SCH (14:00)
[2021-06-30] MEDS: methylPREDNISolone Sod Succinate 40 MG/1 ML INJ IV SCH (16:08)
[2021-06-30] MEDS: ZINC SULFATE 220 MG CAP PO SCH (21:49)
[2021-06-30] MEDS: ASCORBIC ACID 500 MG TAB PO SCH (21:49)
[2021-06-30] MEDS: FAMOTIDINE 20 MG TAB PO SCH (21:49)
[2021-06-30] MEDS: HEPARIN 5,000 UNIT/1 ML VIAL SUB-Q SCH (21:50)
[2021-07-01] MEDS: methylPREDNISolone Sod Succinate 40 MG/1 ML INJ IV SCH ×2 (01:30→10:21)
[2021-07-01] MEDS: oxyCODONE /ACETAMINOPHEN 5-325MG TAB PO PRN (01:41)
[2021-07-01] MEDS: PREGABALIN 75 MG CAP PO SCH ×2 (01:42→10:22)
[2021-07-01] MEDS: PREGABALIN 25 MG CAP PO SCH ×2 (01:42→10:22)
[2021-07-01] MEDS ORDERED: VANCOMYCIN/NS 1 GM/250 ML 1 GM/250 ML BAG IV SCH (02:00)
--- NOTE | 2021-07-01 07:20 | Progress Note ---
Hospitalist Physical - Constitutional Vitals: Temp Pulse Resp BP Pulse Ox 98.5 F 55 L 17 124/89 99 06/30/21 09:24 06/30/21 22:40 07/01/21 01:41 06/30/21 22:40 06/30/21 22:40 General appearance: Present: mild distress, obese Results - Labs CBC & Chem 7: 06/30/21 10:39 06/30/21 10:39 Labs: Laboratory Last Values WBC 19.6 K/mm3 (4.5-11.0) H 06/30/21 10:39 RBC 4.24 M/mm3 (3.65-5.03) 06/30/21 10:39 Hgb 13.0 gm/dl (10.1-14.3) 06/30/21 10:39 Hct 37.0 % (30.3-42.9) 06/30/21 10:39 MCV 87 fl (79-97) 06/30/21 10:39 MCH 31 pg (28-32) 06/30/21 10:39 MCHC 35 % (30-34) H 06/30/21 10:39 RDW 17.3 % (13.2-15.2) H 06/30/21 10:39 Plt Count 340 K/mm3 (140-440) 06/30/21 10:39 Lymph % (Auto) 11.4 % (13.4-35.0) L 06/30/21 10:39 [place] % (Auto) 3.2 % (0.0-7.3) 06/30/21 10:39 Eos % (Auto) 0.4 % (0.0-4.3) 06/30/21 10:39 Baso % (Auto) 0.9 % (0.0-1.8) 06/30/21 10:39 Lymph # (Auto) 2.2 K/mm3 (1.2-5.4) 06/30/21 10:39 [place] # (Auto) 0.6 K/mm3 (0.0-0.8) 06/30/21 10:39 Eos # (Auto) 0.1 K/mm3 (0.0-0.4) 06/30/21 10:39 Baso # (Auto) 0.2 K/mm3 (0.0-0.1) H 06/30/21 10:39 Seg Neutrophils % 84.1 % (40.0-70.0) H 06/30/21 10:39 Seg Neutrophils # 16.4 K/mm3 (1.8-7.7) H 06/30/21 10:39 D-Dimer 472.32 ng/mlDDU (0-234) H 06/30/21 12:23 Sodium 134 mmol/L (137-145) L 06/30/21 10:39 Potassium 4.9 mmol/L (3.6-5.0) 06/30/21 10:39 Chloride 93.2 mmol/L (98-107) L 06/30/21 10:39 Carbon Dioxide 30 mmol/L (22-30) 06/30/21 10:39 Anion Gap 16 mmol/L 06/30/21 10:39 BUN 11 mg/dL (7-17) 06/30/21 10:39 Creatinine 0.8 mg/dL (0.6-1.2) 06/30/21 10:39 Estimated GFR > 60 ml/min 06/30/21 10:39 BUN/Creatinine Ratio 14 % 06/30/21 10:39 Glucose 104 mg/dL (65-100) H 06/30/21 10:39 Lactic Acid 1.20 mmol/L (0.7-2.0) 06/30/21 18:10 Calcium 8.6 mg/dL (8.4-10.2) 06/30/21 10:39 Total Bilirubin 0.20 mg/dL (0.1-1.2) 06/30/21 10:39 AST 16 units/L (5-40) 06/30/21 10:39 ALT 8 units/L (7-56) 06/30/21 10:39 Alkaline Phosphatase 106 units/L (35-129) 06/30/21 10:39 Lactate Dehydrogenase 205 units/L (91-180) H 06/30/21 12:23 C-Reactive Protein 4.70 mg/dL (0.00-1.30) H 06/30/21 12:23 Total Protein 7.5 g/dL (6.3-8.2) 06/30/21 10:39 Albumin 3.6 g/dL (3.9-5) L 06/30/21 10:39 Albumin/Globulin Ratio 0.9 % 06/30/21 10:39 Procalcitonin < 0.05 ng/mL (<0.15) 06/30/21 12:23 Microbiology: Microbiology 06/30/21 12:23 Peripheral/Venous Blood Culture - Preliminary Culture in Progress 06/30/21 12:23 Peripheral/Venous Blood Culture - Preliminary Culture in Progress Espitia/IV: Voiding Method External Female Catheter Active Medications - Current Medications Current Medications: Generic Name Dose Route Start Last Admin Trade Name Freq PRN Reason Stop Dose Admin Acetaminophen 650 mg 06/30/21 12:12 Acetaminophen 325 Mg Tab PO Q4H PRN Pain MILD(1-3)/Fever >100.5/GARCIAS Albuterol 2.5 mg 06/30/21 12:12 Albuterol 2.5 Mg/3 Ml Nebu IH Q4H PRN Shortness Of Breath Ascorbic Acid 500 mg 06/30/21 22:00 06/30/21 21:49 Ascorbic Acid 500 Mg Tab PO 500 mg BID ANTHONY Administration Cholecalciferol 1,000 unit 07/01/21 10:00 Cholecalciferol (Vit D3) 1000 Unit (25 Mcg) Tab PO QDAY ANTHONY Famotidine 20 mg 06/30/21 22:00 06/30/21 21:49 Famotidine 20 Mg Tab PO 20 mg BID ANTHONY Administration Heparin Sodium (Porcine) 5,000 unit 06/30/21 22:00 06/30/21 21:50 Heparin 5,000 Unit/1 Ml Vial SUB-Q 5,000 unit Q12HR ANTHONY Administration Hydrocodone Bit/Homatropine Methylb 10 ml 06/30/21 12:16 Hydrocodone/Homatropine 5-1.5mg /5 Ml Oral Liqd Unit Dose PO Q12H PRN Cough Hydromorphone HCl 0.25 mg 06/30/21 12:12 Hydromorphone 1 Mg/1 Ml Inj IV Q4H PRN Pain, Moderate (4-6) Hydromorphone HCl 0.5 mg 06/30/21 12:12 Hydromorphone 1 Mg/1 Ml Inj IV Q12H PRN Pain , Severe (7-10) Ceftriaxone Sodium 2 gm in 100 mls @ 200 mls/hr 07/01/21 13:00 Rocephin/Ns 2 Gm/100 Ml IV Q24H ANTHONY Protocol Azithromycin 500 mg in 250 mls @ 250 mls/hr 07/01/21 12:00 Zithromax/Ns IV Q24H ANTHONY Protocol Vancomycin HCl 1 gm in 250 mls @ 166.667 mls/hr 07/01/21 02:00 07/01/21 01:30 Vancomycin/Ns 1 Gm/250 Ml IV 166.667 mls/hr Q12H ANTHONY Administration Methylprednisolone Sodium Succinate 40 mg 06/30/21 16:00 07/01/21 01:30 Methylprednisolone Sod Succinate 40 Mg/1 Ml Inj IV 40 mg Q8H ANTHONY Administration Ondansetron HCl 4 mg 06/30/21 12:12 Ondansetron 4 Mg/2 Ml Inj IV Q8H PRN Nausea And Vomiting Oxycodone/Acetaminophen 1 tab 06/30/21 12:12 07/01/21 01:41 Oxycodone /Acetaminophen 5-325mg Tab PO 1 tab Q6H PRN Administration Pain, Moderate (4-6) Pregabalin 150 mg 06/30/21 20:00 07/01/21 01:42 Pregabalin 75 Mg Cap PO Not Given TID ANTHONY Pregabalin 50 mg 06/30/21 20:00 07/01/21 01:42 Pregabalin 25 Mg Cap PO Not Given TID ANTHONY Sodium Chloride 10 ml 06/30/21 22:00 06/30/21 21:54 Sodium Chloride 0.9% 10 Ml Flush Syringe IV 10 ml BID ANTHONY Administration Sodium Chloride 10 ml 06/30/21 12:12 Sodium Chloride 0.9% 10 Ml Flush Syringe IV PRN PRN LINE FLUSH Zinc Sulfate 220 mg 06/30/21 22:00 06/30/21 21:49 Zinc Sulfate 220 Mg Cap PO 220 mg BID ANTHONY Administration
[2021-07-01 08:56] LABS: Blood Urea Nitrogen 8 mg/dL (7-17); Calcium 7.8 mg/dL (8.4-10.2); Hemolysis Index 4
[2021-07-01 09:00] LABS: BUN/Creatinine Ratio 13
[2021-07-01 09:09] LABS: Basophils % (Auto) 0.1 % (0.0-1.8); Eosinophils % (Auto) 0.1 % (0.0-4.3); Hematocrit 36.6 % (30.3-42.9); Lymphocytes # (Auto) 1.5 K/mm3 (1.2-5.4); Lymphocytes % (Auto) 9.4 % (13.4-35.0); Mean Corpuscular HGB Conc 33 % (30-34); Mean Corpuscular Volume 88 fl (79-97); Monocytes # (Auto) 0.5 K/mm3 (0.0-0.8); Monocytes % (Auto) 3.1 % (0.0-7.3); Platelet Count 388 K/mm3 (140-440); Red Blood Count 4.14 M/mm3 (3.65-5.03); Red Cell Distribution Width 17.3 % (13.2-15.2)
[2021-07-01] MEDS ORDERED: CHOLECALCIFEROL (VIT D3) 1000 UNIT (25 mcg) TAB PO SCH (10:00)
[2021-07-01] MEDS: ZINC SULFATE 220 MG CAP PO SCH (10:22)
[2021-07-01] MEDS: ASCORBIC ACID 500 MG TAB PO SCH (10:22)
[2021-07-01] MEDS: HEPARIN 5,000 UNIT/1 ML VIAL SUB-Q SCH (10:22)
[2021-07-01] MEDS: FAMOTIDINE 20 MG TAB PO SCH (10:22)
[2021-07-01] MEDS ORDERED: ARFORMOTEROL 15 MCG/2 ML NEBU IH SCH (10:30)
[2021-07-01] MEDS ORDERED: NICOTINE 7 MG/24 HR PATCH TD SCH (11:00)
[2021-07-01] MEDS ORDERED: AZITHROMYCIN/NS 500 MG/250 ML 500 MG/250 ML BAG IV SCH (12:00)
[2021-07-01 12:14] VITALS: BP 128/82
--- NOTE | 2021-07-01 12:16 | Discharge Summary ---
Providers - Providers Date of Admission: 06/30/21 12:12 Date of discharge: 07/01/21 Attending physician: RADHA MILLER MD Primary care physician: FINANCIAL REPORTING ACCOUNTANT Hospitalization Reason for admission: Shortness of breath Condition: Fair Hospital course: 60-year-old female with OHS, nicotine dependence, COPD and fibromyalgia who presented with shortness of breath and cough x3 weeks. Cough is nonproductive and not associated with any constitutional symptoms. Pulse oximetry showed SPO2 of 86%. Chest x-ray showed bilateral patchy infiltrates. Patient was placed on COVID-19 protocol secondary to unvaccinated status. Steroids were started along with Covid vitamins. Covid PCR was negative. She was giving albuterol and Brovana nebulizers with improvement in wheezing. She no longer required oxygen and was discharged home with inhaler medications. Disposition: 01 HOME / SELF CARE / HOMELESS Final Discharge Diagnosis (Prints w/discharge instructions): COPD exacerbation. Tobacco dependence Time spent for discharge: 20 minutes Core Measure Documentation - Palliative Care Palliative Care/ Comfort Measures: Not Applicable - Core Measures Any of the following diagnoses?: none Exam - Physical Exam Narrative exam: GENERAL: Well-developed well-nourished. Sitting on the side of the bed in no acute distress. HEENT: Normocephalic. Atraumatic. CHEST/LUNGS: Expiratory wheezes appreciated at bilateral lung bases posteriorly. HEART/CARDIOVASCULAR: RRR. No murmur, rubs or gallops appreciated. ABDOMEN: +BS. NT/ND. NEURO: No focal motor deficit. Follows all commands and is ambulatory. MUSCULOSKELETAL: No joint effusion EXTREMITIES: No cyanosis, clubbing or edema. PSYCH: Cooperative. - Constitutional Vitals: Temp Pulse Resp BP Pulse Ox 98 F 58 L 22 128/82 94 07/01/21 12:14 07/01/21 12:14 07/01/21 12:14 07/01/21 12:14 07/01/21 12:14 Plan Care Plan Goals: Follow up with primary care and get referral to Pulmonology for COPD treatment. Consider cutting back or quit smoking. Please pick up man your inhalers and use them as directed. Assessment: Improved. Patient reports no longer having shortness of breath after nebulized treatments. Pulse ox remained greater than 92% on RA. Counseled about smoking cessation and give a dose of brovana prior to leaving. COVID PCR still pending. Discharge with a short course of steroids and prescriptions. Follow up with: PRIMARY CARE, [Primary Care Provider] - 3-5 Days Prescriptions: Pregabalin [Lyrica] 1 cap PO TID 30 Days #90 cap Prednisone [predniSONE 10 mg (6-Day Pack, 21 Tabs)] 10 mg PO .TAPER #1 tab.ds.pk Albuterol Sulfate [Proair Respiclick] 90 mcg IH Q4H PRN 30 Days #2 aer.pow.ba PRN Reason: Shortness Of Breath Budesonide/Formoterol Fumarate [Symbicort 160-4.5 Mcg Inhaler] 10.2 gm IH BID 30 Days #2 hfa.aer.ad
[2021-07-01] MEDS ORDERED: cefTRIAXone/NS 2 GM/100 ML 2 GM/100 ML BAG IV SCH (13:00)
== END 2021-07-01 14:35 | disposition home or self-care (01) ==
LOC: ED 09:13 → INTOOBSV 12:12 → 3A 12:12
PROVIDERS: ADMIT Internal Medicine; ATTEND Student in an Organized Health Care Education/Training Program
DX: A41.9 Sepsis, unspecified organism (principal); Z20.822 Contact with and (suspected) exposure to COVID-19; J96.01 Acute respiratory failure with hypoxia; J44.1 Chronic obstructive pulmonary disease with (acute) exacerbation; J18.9 Pneumonia, unspecified organism; E66.2 Morbid (severe) obesity with alveolar hypoventilation; E03.9 Hypothyroidism, unspecified; M79.7 Fibromyalgia; F31.9 Bipolar disorder, unspecified; F17.200 Nicotine dependence, unspecified, uncomplicated; Z79.899 Other long term (current) drug therapy
CPT/HCPCS: 36415; 71046; 80048; 80053; 82140; 83615; 84145; 85025; 85379; 86140; 87040; 94640; 96365; 96366; 96367; 96372; 96375; 96376; 99284; G0378; J0456; J0696; J1100; J1644; J2920; J3370; J7030; J7040; U0003

== ENCOUNTER 2021-07-24 07:27 | Emergency (ER) | payer MEDICARE ==
[2021-07-24 07:38] VITALS: BP 159/97
[2021-07-24] MEDS ORDERED: ONDANSETRON 4 MG ODT TAB PO ONE (07:53)
--- NOTE | 2021-07-24 08:16 | Emergency Department Report ---
ED General Adult HPI - General Chief complaint: Nausea/Vomiting/Diarrhea Stated complaint: WEAK/NAUSEA Time Seen by Provider: 07/24/21 07:52 Source: EMS Mode of arrival: Stretcher Limitations: No Limitations - History of Present Illness Initial comments: The patient was evaluated in the emergency department for symptoms described in the history of present illness. He/she was evaluated in the context of the global COVID-19 pandemic, which necessitated consideration that the patient might be at risk for infection with the virus that causes COVID-19. Institutional protocols and algorithms that pertain to the evaluation of patients at risk for COVID-19 are in a state of rapid change based on information released by regulatory bodies including the CDC and federal and state organizations. These policies and algorithms were followed during the patient's care in the emergency department. Please note that these policies, procedures and recommendations changed on a rapid basis. 60-year-old female presents to the emergency room complaining of nausea and chronic pain from her fibromyalgia. Patient reports she has a history of low thyroid she is seen by her primary care doctor Dr. Camargo patient states that she saw her doctor last week but has been out of her Lyrica and her gabapentin. Patient states that she is not sure why she did not ask for refill of her meds. She does admit that she is using her Lyrica more than she supposed to. She states that she took her last gabapentin yesterday. She states that [facility]. She is fully vaccinated for Covid. -: This morning Time: 04:00 Severity scale (0 -10): 8 Quality: aching Consistency: constant Improves with: medication Worsens with: none Associated Symptoms: confusion, nausea/vomiting (No vomiting), weakness. denies: chest pain, cough, diaphoresis, fever/chills, shortness of breath, syncope Treatments Prior to Arrival: none - Related Data Previous Rx's Medication Instructions Recorded Last Taken Type Ibuprofen [Motrin 600 MG tab] 600 mg PO Q8H PRN #30 tablet 03/30/18 Unknown Rx Albuterol Sulfate [Proair 90 mcg IH Q4H PRN 30 Days #2 07/01/21 Unknown Rx Respiclick] [email or web address] Budesonide/Formoterol Fumarate 10.2 gm IH BID 30 Days #2 07/01/21 Unknown Rx [Symbicort 160-4.5 Mcg Inhaler] [email or web address] Prednisone [predniSONE 10 mg 10 mg PO .TAPER #1 tab.ds.pk 07/01/21 Unknown Rx (6-Day Pack, 21 Tabs)] Pregabalin [Lyrica] 1 cap PO TID 30 Days #90 cap 07/01/21 Unknown Rx Allergies Allergy/AdvReac Type Severity Reaction Status Date / Time No Known Allergies Allergy Verified 06/30/21 12:12 ED Review of Systems ROS: Stated complaint: WEAK/NAUSEA Other details as noted in HPI ED Past Medical Hx - Past Medical History Hx Congestive Heart Failure: No Hx Diabetes: No Hx Seizures: Yes Hx Psychiatric Treatment: Yes (Bipolar, depression) Hx Asthma: Yes Hx COPD: Yes (no home O2) Additional medical history: fibromyalgia. hypothyroidism - Surgical History Additional Surgical History: benign lump removed from breast, tubal ligation, knee surgery, renal stent - Social History Smoking Status: Current Every Day Smoker Substance Use Type: None - Medications Home Medications: Home Medications Medication Instructions Recorded Confirmed Last Taken Type Ibuprofen [Motrin 600 MG tab] 600 mg PO Q8H PRN #30 tablet 03/30/18 Unknown Rx Albuterol Sulfate [Proair 90 mcg IH Q4H PRN 30 Days #2 07/01/21 Unknown Rx Respiclick] [email or web address] Budesonide/Formoterol Fumarate 10.2 gm IH BID 30 Days #2 07/01/21 Unknown Rx [Symbicort 160-4.5 Mcg Inhaler] [email or web address] Prednisone [predniSONE 10 mg 10 mg PO .TAPER #1 tab.ds.pk 07/01/21 Unknown Rx (6-Day Pack, 21 Tabs)] Pregabalin [Lyrica] 1 cap PO TID 30 Days #90 cap 07/01/21 Unknown Rx ED Physical Exam - General Limitations: No Limitations General appearance: alert, in no apparent distress - Head Head exam: Present: atraumatic, normocephalic - Eye Eye exam: Present: normal appearance - ENT ENT exam: Present: mucous membranes moist - Neck Neck exam: Present: normal inspection - Respiratory Respiratory exam: Present: normal lung sounds bilaterally. Absent: respiratory distress - Cardiovascular Cardiovascular Exam: Present: regular rate, normal rhythm. Absent: systolic murmur, diastolic murmur, rubs, gallop - GI/Abdominal GI/Abdominal exam: Present: soft, normal bowel sounds - Extremities Exam Extremities exam: Present: normal inspection - Back Exam Back exam: Present: normal inspection - Neurological Exam Neurological exam: Present: alert, oriented X3 - Psychiatric Psychiatric exam: Present: normal affect, normal mood - Skin Skin exam: Present: warm, dry, intact, normal color. Absent: rash ED Course Vital Signs 07/24/21 07:37 Temperature 97.4 F L Pulse Rate 72 Respiratory 18 Rate Blood Pressure 159/97 [Right] O2 Sat by Pulse 95 Oximetry ED Medical Decision Making - Medical Decision Making 60-year-old female presents to the emergency room complaining of nausea and chronic pain from her fibromyalgia. Patient reports she has a history of low thyroid she is seen by her primary care doctor Dr. Camargo patient states that she saw her doctor last week but has been out of her Lyrica and her gabapentin. Patient states that she is not sure why she did not ask for refill of her meds. She does admit that she is using her Lyrica more than she supposed to. She states that she took her last gabapentin yesterday. She states that [facility] appears to [facility]. She is fully vaccinated for Covid. Zofran 4 mg ODT urinalysis Patient had her Zofran and states that she wants to leave. Has not given her urine. Patient will sign AMA papers. Critical care attestation.: If time is entered above; I have spent that time in minutes in the direct care of this critically ill patient, excluding procedure time. ED Disposition Clinical Impression: Nausea, Fibromyalgia Disposition: LEFT AGAINST MEDICAL ADVICE Is pt being admited?: No Does the pt Need Aspirin: No Condition: Stable Referrals: PRIMARY CARE,MD [Primary Care Provider] - 3-5 Days Forms: AMA Form, Work/School Release Form(ED) Time of Disposition: 08:17
== END 2021-07-24 08:14 | disposition left against medical advice (07) ==
LOC: ED 07:27
DX: R11.0 Nausea (principal); M79.7 Fibromyalgia; E03.9 Hypothyroidism, unspecified; F17.200 Nicotine dependence, unspecified, uncomplicated; J44.9 Chronic obstructive pulmonary disease, unspecified; Z79.899 Other long term (current) drug therapy
CPT/HCPCS: 99282; Q0162